=== PATIENT | female | born 1985 | race African-American/Black ===

== ENCOUNTER 2024-04-21 09:21 | Emergency (ER) | payer SELFPAY ==
[2024-04-21 09:36] VITALS: TEMP 97.8; BMI 27.9
[2024-04-21 10:23] LABS: BASO % 0.5 % (0-2.0); EOS % 0.8 % (0-4.5); HEMATOCRIT 37.9 % (32.4-45.2); HEMOGLOBIN 12.4 GM/dL (10.7-15.3); LYMPH % 42.8 % (8-40); MCH 25.5 pg (25.7-33.7); MCHC 32.8 g/dl (32.0-36.0); MEAN CELL VOLUME 77.8 fl (80-96); MEAN PLT VOLUME 7.8 fl (7.5-11.1); MONO % 10.5 % (3.8-10.2); NEUT % 45.4 % (42.8-82.8); PLATELET COUNT 321 10^3/uL (134-434); RBC 4.87 M/mm3 (3.60-5.2); RDW 13.6 % (11.6-15.6); WHITE BLOOD COUNT 9.2 K/mm3 (4.0-10.0)
[2024-04-21 10:30] LABS: INR 1.03 (0.83-1.09); PROTHROMBIN TIME (PATIENT) 11.8 SEC (9.7-13.0)
[2024-04-21 10:33] LABS: ACTIVATED PTT 35.3 SECONDS (25.2-36.5)
[2024-04-21] MEDS ORDERED: METOCLOPRAMIDE HCL INJECTION 10 MG/2 ML VIAL ONE (10:38)
[2024-04-21] MEDS ORDERED: ACETAMINOPHEN INJECTION 100 ML IVPB ONE (10:39)
[2024-04-21 10:40] LABS: CHLORIDE 102 mmol/L (98-107); POTASSIUM 3.8 mmol/L (3.5-5.1); SODIUM 134 mmol/L (136-145)
[2024-04-21 10:44] LABS: CALCIUM 8.6 mg/dL (8.5-10.1)
[2024-04-21 10:45] LABS: ALBUMIN 3.6 g/dl (3.4-5.0); ANION GAP 6 mmol/L (4-13); CO2 27 mmol/L (21-32)
[2024-04-21 10:47] LABS: BLOOD UREA NITROGEN 9.8 mg/dL (7-18); GLUCOSE,RANDOM 95 mg/dL (74-106)
[2024-04-21 10:48] LABS: CREATININE 0.6 mg/dL (0.55-1.3); SGOT/AST 18 U/L (15-37); SGPT/ALT 24 U/L (13-61)
[2024-04-21] MEDS: ACETAMINOPHEN 1000 MG/100 ML BAG IVPB ONE (10:48)
[2024-04-21] MEDS: LACTATED RINGERS SOLUTION 1000 ML INFUS.BAG IV ONE (10:48)
[2024-04-21] MEDS: METOCLOPRAMIDE HCL INJECTION 10 MG/2 ML VIAL IVPB ONE (10:49)
[2024-04-21 10:50] LABS: CHOLESTEROL 168 mg/dL (50-200); TOT PROT 7.4 g/dl (6.4-8.2)
[2024-04-21 10:51] LABS: LDL CHOLESTEROL (ONLY SJRH) 118 mg/dL (5-100)
[2024-04-21 10:52] LABS: BILIRUBIN,TOTAL 0.3 mg/dL (0.2-1)
[2024-04-21 10:53] LABS: ALK PHOS 107 U/L (45-117); HDL CHOLESTEROL 46 mg/dL (40-60)
[2024-04-21 11:54] VITALS: BP 121/79; PULSE 95; RESP 16
== END 2024-04-21 13:43 | disposition left against medical advice (07) ==
LOC: JER 09:21
PROC: 3E033GC Introduction of Other Therapeutic Substance into Peripheral Vein, Percutaneous Approach (ICD-10-PCS; principal; 2024-04-21)
PROC: 3E033NZ Introduction of Analgesics, Hypnotics, Sedatives into Peripheral Vein, Percutaneous Approach (ICD-10-PCS; 2024-04-21)
DX: R47.81 Slurred speech (principal); R53.1 Weakness; G43.809 Other migraine, not intractable, without status migrainosus; R20.0 Anesthesia of skin
CPT/HCPCS: 36415; 70450-TC; 70496-TC; 70498-TC; 80053; 80061; 82550; 82962; 83036; 84484; 85025; 85610; 85730; 86850; 86900; 86901; 93005; 93010; 99285-25; J0131